=== PATIENT | female | born 1960 | race African-American/Black ===

== ENCOUNTER 2018-10-27 14:46 | Inpatient (IN) ==
--- NOTE | 2018-10-27 15:01 | DR.NAUSEAF ---
HPI Time Seen Time Seen by Provider: 10/27/18 15:01 Primary Care Physician Primary Care Physician: haroon HPI Comment HPI Comment: PATIENT IS 58YR OLD FEMALE WITH ESKD ON HEMODIALYSIS IS IN ER WITH SEVERE LEFT FLANK PAIN, SHARP 8/10 WITH NAUSEA AND VOMITING. SHE WAS AT THE DIALYSIS CENTER FOR HER DIALYSIS WHEN PAIN GOT WORSE. NO FEVER. PATIENT IS CONCEPCION SEATED AND IS VOMITING. DENIES SIMILAR PAIN IN THE PAST. Complaints Chief Complaint Doctors Comments: LEFT FLANK PAIN, NAUSEA AND VOMITING NOTED TODAY. Chief Complaint:: ems was called to the dialysis clinic to a female who is vomiting and nauseated with left flank pain. pt stated she has not had her bp meds today she was waiting for dialysis . Reviewed Nurses Notes Reviewed: Yes Source History Provided: Patient Mode of Arrival Mode of Arrival: EMS Timing Onset of Chief Complaint: 10/27/18 Duration Duration: HRS Context Onset: Spontaneous Recent: None : No History of: Diabetes Quality Quality: Food Particles Associated Signs and Symptoms Abdominal Pain Quality: Other (LEFT FLANK PAIN, SHARP.) Other History Other History: DM, HTN, ESKD. PMH PMH Past Medical History: Yes Past Medical History: Hypertension Past Surgical History: Yes Surgical History: Unknown Family History History of Family Medical Conditions: No Social History Does patient currently use any type of tobacco product: No Have you used tobacco products in the last 12 months: No Type of Tobacco Use: None Does any household member use tobacco: No Alcohol Use: None Do you use any recreational Drugs:: No Lives With: Family Lives Where: Home infectious screening In the last 2 months have you had wt loss of >10#?: NO Have you had fever, night sweats or hemotysis?: No Have you traveled outside the country in the last 6 months?: No Isolation: Standard ROS Review of Systems Constitutional: No Symptoms Reported and See HPI; negative Fever, Weakness and Fatigue Eyes: No Symptoms Reported and See HPI ENTM: No Symptoms Reported and See HPI Respiratoy: See HPI and Short of Breath; negative Wheezing Cardiovascular: See HPI and Edema; negative Chest Pain Gastrointestinal/Abdominal: See HPI, Nausea and Vomiting Genitourinary: See HPI and Pain (LEFT FLANK PAIN.) Neurological: No Symptoms Reported and See HPI; negative Headache, Weakness and Dizziness Musculoskeletal: See HPI and Back Pain (LEFT FLANK PAIN.) Integumentary: No Symptoms Reported and See HPI Hematologic/Lymphatic: No Symptoms Reported and See HPI Endocrine: No Symptoms Reported and See HPI Psychiatric: No Symptoms Reported and See HPI All Other Systems: Reviewed and Negative PE Vital Signs Vitals: Temperature 98.6 F Pulse Rate [Left Brachial] 80 Pulse Rate 90 Respiratory Rate 18 Blood Pressure [Left Arm] 177/85 Blood Pressure 233/107 O2 Sat by Pulse Oximetry 96 General Limitations: No Limitations General Appearance: Alert and In No Apparent Distress Head Head Exam: Normal Inspection and Atraumatic Eyes Eye exam: Normal Appearance and PERRL; negative Scleral Icterus and Conjunctival Injection ENT ENT Exam: Normal Exam, Normal Oropharynx, Normal External Ear Exam and TM's Normal Bilaterally Neck Neck Exam: Normal Inspection and Trachea Midline; negative Tenderness and Lymphadenopathy Chest Chest Inspection: Normal Inspection and Symmetric Chest Wall Rise; negative Tenderness Respiratory Respiratory Exam: Normal Lung Sounds Bilat and Respiratory Distress; negative Accessory Muscle Use and Chest Wall Tenderness Respiratory Exam: Bilateral: Rhonchi and Lower: Rhonchi Cardiovascular Cardiovascular Exam: Regular Rate, Normal Rhythm and Normal Heart Sounds; negative Systolic Murmur and Diastolic Murmur Abdominal Exam Abdominal Exam: Normal Inspection, Normal Bowel Sounds and Soft; negative Tenderness Rectal Rectal Exam: Deferred External Exam: Female: Deferred : Speculum Exam (Female): Deferred : Bimanual Exam (female): Deferred Extremities Extremities Exam: Normal Inspection Back Back Exam: (L) CVA Tenderness and Paraspinal Tenderness Neurologic Neurological Exam: Alert, Oriented X3 and CN II-XII Intact; negative Motor Sensory Deficit Psychiatric Psychiatric Exam: Normal Affect and Normal Mood Skin Skin Exam: Warm, Dry, Intact and Normal Color MDM Additional Information Obtained Additional Information Obtained From: Old Records Differential Diagnosis Differential Diagnosis: Considerations may Include:: Bowel Obstruction, Diabetes/DKA, Inflammatory BD, Pancreatitis, PUD, Urinary Tract Infection and Urolithiasis COURSE Treatment Treatment: SEE ORDERS. MORPHIN 4MG IV AND ZOFRAN 4MG IV IN ED. ROR Labs Reviewed Laboratory Results Reviewed?: Yes Result Diagrams: 10/29/18 05:45 10/29/18 05:45 Laboratory: WBC 4.0 X10^3/uL (3.6-10.0) 10/27/18 15:47 RBC 4.47 X10^6/uL (3.5-5.4) 10/27/18 15:47 Hgb 12.9 g/dL (12.0-16.0) 10/27/18 15:47 Hct 38.9 % (36.0-47.0) 10/27/18 15:47 MCV 87.0 fL (80.0-100.0) 10/27/18 15:47 MCH 28.9 pg (27.0-34.0) 10/27/18 15:47 MCHC 33.2 g/dL (33.0-35.0) 10/27/18 15:47 RDW 18.9 % (11.6-16.5) H 10/27/18 15:47 Plt Count 191 X10^3/uL (150.0-450.0) 10/27/18 15:47 MPV 8.7 fL (7.4-11.0) 10/27/18 15:47 Neut % (Auto) 68.4 % (42.0-75.0) 10/27/18 15:47 Lymph % (Auto) 18.4 % (21.0-51.0) L 10/27/18 15:47 Schuyler % (Auto) 8.9 % (0.0-13.0) 10/27/18 15:47 Eos % (Auto) 3.4 % (0.9-2.9) H 10/27/18 15:47 Baso % (Auto) 0.9 % (0.2-1.0) 10/27/18 15:47 Neut # (Auto) 2.7 x10^3/uL (2.2-4.8) 10/27/18 15:47 Lymph # (Auto) 0.7 X10^3/uL (1.3-2.9) L 10/27/18 15:47 Schuyler # (Auto) 0.4 x10^3/uL (0.3-0.8) 10/27/18 15:47 Eos # (Auto) 0.1 x10^3/uL (0.0-0.2) 10/27/18 15:47 Baso # (Auto) 0.0 X10^3/uL (0.0-0.1) 10/27/18 15:47 Absolute Nucleated RBC 0.0 /100WBC 10/27/18 15:47 Sodium 138 mmol/L (136-145) 10/27/18 15:47 Corrected Sodium 138 mmol/L (136-145) 10/27/18 15:47 Potassium 3.8 mmol/L (3.5-5.1) 10/27/18 15:47 Chloride 97 mmol/L (98-107) L 10/27/18 15:47 Carbon Dioxide 25.1 mmol/L (21-32) 10/27/18 15:47 BUN 45 mg/dL (7-18) H 10/27/18 15:47 Creatinine 7.82 mg/dL (0.55-1.02) H 10/27/18 15:47 Est GFR (MDRD) Af Amer 7 (>60) L 10/27/18 15:47 Est GFR (MDRD) Non-Af 6 (>60) L 10/27/18 15:47 Glucose 113 mg/dL (65-99) H 10/27/18 15:47 Calcium 8.1 mg/dL (8.5-10.1) L 10/27/18 15:47 Corrected Calcium TNP 10/27/18 15:47 Total Bilirubin 0.50 mg/dL (0.2-1.0) 10/27/18 15:47 AST 14 Units/L (15-37) L 10/27/18 15:47 ALT 16 Units/L (12-78) 10/27/18 15:47 Alkaline Phosphatase 93 Units/L (46-116) 10/27/18 15:47 Total Protein 8.9 g/dL (6.4-8.2) H 10/27/18 15:47 Albumin 3.8 g/dL (3.4-5.0) 10/27/18 15:47 Globulin 5.1 g/dL (2.5-4.5) H 10/27/18 15:47 Albumin/Globulin Ratio 0.7 Ratio (1.1-2.1) L 10/27/18 15:47 Amylase 69 Units/L (25-115) 10/27/18 15:47 Lipase 58 Units/L (73-393) L 10/27/18 15:47 XRAY XRAY Interpreted by: Radiologist XRAY Findings: REPORT NOTED AND DISCUSSED WITH PATIENT. Opioid Opioid Risk Tool Age (Liborio box if 16-45): No Total: 0 Total Score Risk Category: Low Risk Copyright: Wolf LR predicting aberrant behaviors Instructions Instructions: Kidney Stones, [id number] Hyperglycemia, [id number] Chronic Kidney Disease, Adult, [id number] Hypertension, [id number] Heart Failure, Ofys-nr-Oslm Hemodialysis, [id number] Forms: Patient Portal
[2018-10-27] MEDS ORDERED: ZOFRAN INJ 4 MG VIAL IVP ONE (15:09)
[2018-10-27] MEDS ORDERED: MORPHINE SULFATE INJ 4 MG IVP ONE (15:09)
[2018-10-27] MEDS ORDERED: ZOFRAN INJ 4 MG VIAL ONE (15:09)
[2018-10-27] MEDS ORDERED: MORPHINE SULFATE INJ 4 MG ONE (15:10)
[2018-10-27] MEDS ORDERED: MORPHINE SULFATE INJ 2 MG INJ IVP ONE (15:54)
[2018-10-27 15:55] LABS: BASOPHILS % (AUTO) 0.9 % (0.2-1.0); EOSINOPHILS # (AUTO) 0.1 x10^3/uL (0.0-0.2); EOSINOPHILS % (AUTO) 3.4 % (0.9-2.9); HEMATOCRIT 38.9 % (36.0-47.0); HEMOGLOBIN 12.9 g/dL (12.0-16.0); LYMPHOCYTES # (AUTO) 0.7 X10^3/uL (1.3-2.9); LYMPHOCYTES % (AUTO) 18.4 % (21.0-51.0); MEAN CORPUSCULAR HEMOGLOBIN 28.9 pg (27.0-34.0); MEAN CORPUSCULAR HGB CONC 33.2 g/dL (33.0-35.0); MEAN PLATELET VOLUME 8.7 fL (7.4-11.0); MONOCYTES # (AUTO) 0.4 x10^3/uL (0.3-0.8); MONOCYTES % (AUTO) 8.9 % (0.0-13.0); NEUTROPHILS # (AUTO) 2.7 x10^3/uL (2.2-4.8); NEUTROPHILS % (AUTO) 68.4 % (42.0-75.0); PLATELET COUNT 191 X10^3/uL (150.0-450.0); RED BLOOD COUNT 4.47 X10^6/uL (3.5-5.4); RED CELL DISTRIBUTION WIDTH 18.9 % (11.6-16.5)
[2018-10-27 16:08] LABS: ALANINE AMINOTRANSFERASE 16 Units/L (12-78); ALBUMIN 3.8 g/dL (3.4-5.0); ALKALINE PHOSPHATASE 93 Units/L (46-116); AMYLASE 69 Units/L (25-115); ASPARTATE AMINO TRANSFERASE 14 Units/L (15-37); BLOOD UREA NITROGEN 45 mg/dL (7-18); CALCIUM 8.1 mg/dL (8.5-10.1); CARBON DIOXIDE 25.1 mmol/L (21-32); CHLORIDE 97 mmol/L (98-107); COR NA(FOR HYPERGLY) 138 mmol/L (136-145); CREATININE 7.82 mg/dL (0.55-1.02); LIPASE 58 Units/L (73-393); SODIUM 138 mmol/L (136-145); TOTAL PROTEIN 8.9 g/dL (6.4-8.2); eGFR NON BLACK RACES 6 (>60)
--- NOTE | 2018-10-27 16:30 | CT ---
CT abdomen and pelvis without contrast Indication: Possible kidney stone Technique: Helical CT images of the and pelvis were obtained without IV contrast. Reformatted images in the coronal and sagittal planes were also generated for review. Comparison: None Findings: Scarring versus atelectasis of the left lung base noted. Imaged lung bases are otherwise clear of acute infiltrates. No acute osseous abnormality is identified. The exam is mildly degraded by patient motion artifact. Evaluation for soft tissue pathology is also limited without IV contrast. Evaluation of the GI tract is also limited without oral contrast. Accounting for this, the unenhanced liver, spleen, pancreas and adrenals are unremarkable. There is cholelithiasis without CT evidence of acute cholecystitis. There are multiple punctate bilateral renal calcifications, which likely reflect a combination of punctate stones as well as vascular calcifications. There is very mild left-sided hydroureteronephrosis secondary to a suspected punctate stone within the mid-distal left ureter (best appreciated on coronal image 39). There is no right-sided obstructive uropathy. There is mild colonic diverticulosis without diverticulitis. There is no bowel obstruction or gross inflammation. The abdominal aorta is mildly calcified without aneurysm. The collapsed urinary bladder is grossly normal without stones. Uterus is absent. Fat containing ventral hernia of the lower abdominal wall noted without evidence of bowel entrapment. No free air, significant free fluid or bulky lymphadenopathy is identified. Impression: Very mild left-sided hydroureteronephrosis secondary to a suspected punctate stone within the mid-distal left ureter as above. Cholelithiasis, colonic diverticulosis without diverticulitis and additional findings as above. Reported By:
[2018-10-27] MEDS ORDERED: TORADOL 15 MG VIAL ONE (17:02)
[2018-10-27] MEDS ORDERED: TORADOL 15 MG VIAL IVP ONE (17:02)
[2018-10-27] MEDS ORDERED: ZOFRAN INJ 4 MG VIAL IVP PRN (18:19)
[2018-10-27] MEDS ORDERED: MORPHINE SULFATE INJ 2 MG INJ IVP PRN (18:19)
[2018-10-27] MEDS ORDERED: PEPCID 20 MG IV PREMIX* 20 MG/50 ML BAG IV PRN (18:24)
[2018-10-27] MEDS: NS 1000 ML 1,000 ML IV SCH (19:00)
[2018-10-27 20:36] VITALS: BMI 43.0
[2018-10-28 05:18] LABS: BASOPHILS % (AUTO) 0.9 % (0.2-1.0); EOSINOPHILS # (AUTO) 0.1 x10^3/uL (0.0-0.2); EOSINOPHILS % (AUTO) 2.5 % (0.9-2.9); HEMATOCRIT 34.8 % (36.0-47.0); HEMOGLOBIN 11.6 g/dL (12.0-16.0); LYMPHOCYTES # (AUTO) 1.5 X10^3/uL (1.3-2.9); LYMPHOCYTES % (AUTO) 26.9 % (21.0-51.0); MEAN CORPUSCULAR HGB CONC 33.3 g/dL (33.0-35.0); MEAN CORPUSCULAR VOLUME 87.1 fL (80.0-100.0); MONOCYTES # (AUTO) 0.5 x10^3/uL (0.3-0.8); MONOCYTES % (AUTO) 8.8 % (0.0-13.0); NEUTROPHILS # (AUTO) 3.3 x10^3/uL (2.2-4.8); NEUTROPHILS % (AUTO) 60.9 % (42.0-75.0); PLATELET COUNT 194 X10^3/uL (150.0-450.0); RED CELL DISTRIBUTION WIDTH 18.8 % (11.6-16.5); WHITE BLOOD COUNT 5.4 X10^3/uL (3.6-10.0)
[2018-10-28 05:25] LABS: ALBUMIN 3.1 g/dL (3.4-5.0); CALCIUM 7.5 mg/dL (8.5-10.1); CARBON DIOXIDE 26.9 mmol/L (21-32); COR CA(FOR HYPOALB) 8.2 mg/dL (8.5-10.1); CREATININE 8.31 mg/dL (0.55-1.02); TOTAL PROTEIN 7.6 g/dL (6.4-8.2)
[2018-10-28] MEDS: NS 1000 ML 1,000 ML IV SCH ×2 (07:23→17:37)
[2018-10-28] MEDS ORDERED: PHARMACY CONSULT - DOSE _____ XX SCH (10:00)
[2018-10-28] MEDS: FLOMAX PO SCH (11:14)
[2018-10-28] MEDS ORDERED: TORADOL 15 MG VIAL IVP PRN (15:25)
[2018-10-28] MEDS: TYLENOL 325 MG TAB PO PRN (20:25)
[2018-10-29] MEDS: NS 1000 ML 1,000 ML IV SCH (01:06)
[2018-10-29 06:03] LABS: BASOPHILS # (AUTO) 0.1 X10^3/uL (0.0-0.1); BASOPHILS % (AUTO) 1.7 % (0.2-1.0); EOSINOPHILS # (AUTO) 0.2 x10^3/uL (0.0-0.2); HEMATOCRIT 34.7 % (36.0-47.0); HEMOGLOBIN 11.3 g/dL (12.0-16.0); LYMPHOCYTES # (AUTO) 1.2 X10^3/uL (1.3-2.9); LYMPHOCYTES % (AUTO) 25.1 % (21.0-51.0); MEAN CORPUSCULAR HEMOGLOBIN 28.5 pg (27.0-34.0); MEAN CORPUSCULAR HGB CONC 32.6 g/dL (33.0-35.0); MEAN CORPUSCULAR VOLUME 87.5 fL (80.0-100.0); MEAN PLATELET VOLUME 8.9 fL (7.4-11.0); MONOCYTES # (AUTO) 0.5 x10^3/uL (0.3-0.8); MONOCYTES % (AUTO) 9.8 % (0.0-13.0); NEUTROPHILS # (AUTO) 2.8 x10^3/uL (2.2-4.8); NEUTROPHILS % (AUTO) 59.4 % (42.0-75.0); PLATELET COUNT 181 X10^3/uL (150.0-450.0); RED BLOOD COUNT 3.97 X10^6/uL (3.5-5.4); WHITE BLOOD COUNT 4.7 X10^3/uL (3.6-10.0)
[2018-10-29 06:15] LABS: ALBUMIN 3.1 g/dL (3.4-5.0); CALCIUM 7.3 mg/dL (8.5-10.1); CARBON DIOXIDE 24.6 mmol/L (21-32); CREATININE 9.66 mg/dL (0.55-1.02); TOTAL PROTEIN 7.5 g/dL (6.4-8.2)
[2018-10-29] MEDS: FLOMAX PO SCH (09:24)
[2018-10-29] MEDS: TYLENOL 325 MG TAB PO PRN (09:46)
[2018-10-29 09:55] VITALS: BP 131/67
== END 2018-10-29 11:49 | disposition home health service (06) | DRG 694 ==
LOC: ER 14:46 → MED/SURG 18:18
PROVIDERS: ADMIT Internal Medicine; ATTEND Internal Medicine
DX: N13.30 Unspecified hydronephrosis; R26.89 Other abnormalities of gait and mobility; N18.6 End stage renal disease; Z99.2 Dependence on renal dialysis
CPT/HCPCS: 36415; 74176; 80053; 82150; 83690; 85025; 96365; 96374; 96375; 97116; 97162; 97167; 99284; A4222; S0028; J1885; J2270; J2405; J3490; J7030